=== PATIENT | male | born 1940 | race Caucasian/White ===

== ENCOUNTER 2018-03-13 19:51 | Inpatient (IN) | payer MEDICARE, MEDICAID ==
--- NOTE | 2018-03-13 20:26 | ED Physician Chart ---
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 ED Review of Systems - Review of Systems General/Constitutional: No fever, No chills, No weight loss, No weakness, No diaphoresis, No edema, No loss of appetite Skin: No skin lesions, No rash, No bruising Head: No headache, No light-headedness Eyes: No loss of vision, No pain, No diplopia ENT: No earache, No nasal drainage, No sore throat, No tinnitus Neck: No neck pain, No swelling, No thyromegaly, No stiffness, No mass noted Cardio Vascular: No chest pain, No palpitations, No PND, No orthopnea, No edema Pulmonary: No SOB, No cough, No sputum, No wheezing GI: No nausea, No vomiting, No diarrhea, No pain, No melena, No hematochezia, No constipation, No hematemesis G/U: No dysuria, No frequency, No hematuria Musculoskeletal: No bone or joint pain, No back pain, No muscle pain Endocrine: No polyuria, No polydipsia Psychiatric: Anxiety (agitation) Hematopoietic: No bruising, No lymphadenopathy Allergic/Immuno: No urticaria, No angioedema Neurological: No syncope, No focal symptoms, No weakness, No paresthesia, No headache, No seizure, No dizziness, No confusion, No vertigo ED Past Medical History - Past Medical History Past Medical History: Other (anxiety agitation) ED Physical Exam - Physical Examination General/Constitutional: Awake, Well-developed, well-nourished, Alert, No distress, GCS 15, Non-toxic appearing, Ambulatory Head: Atraumatic Eyes: Lids, conjuctiva normal, PERRL, EOMI Skin: Nl inspection, No rash, No skin lesions, No ecchymosis, Well hydrated, No lymphadenopathy ENMT: External ears, nose nl, Nasal exam nl, Lips, teeth, gums nl Neck: Nontender, Full ROM w/o pain, No JVD, No nuchal rigidity, No bruit, No mass, No stridor Respiratory: Nl effort/Exclusion, Clear to Auscultation, No Wheeze/Rhonchi/Rales Cardio Vascular: RRR, No murmur, gallop, rubs, NL S1 S2 GI: No tenderness/rebounding/guarding, No organomegaly, No hernia, Normal BS's, Nondistended, No mass/bruits, No McBurney tenderness : No CVA tenderness Extremities: No tenderness or effusion, Full ROM, normal strength in all extremities, No edema, Normal digits & nails Neuro/Psych: Alert/oriented, DTR's symmetric, Normal sensory exam, Normal motor strength, Judgement/insight normal, Mood normal, Normal gait, No focal deficits Misc: Normal back, No paraspinal tenderness ED Assessment - Assessment General Assessment: agitation ED Septic Shock - . Is Septic Shock (SBP<90, OR Lactate>4 mmol\L) present?: No ED Reassessment (Disposition) - Reassessment Reassessment:: agitation anxiety - Diagnosis Diagnosis:: as above - Patient Disposition Discharge/Transfer:: Acute Care w/in this hosp Admitted to:: Med/Surg Condition at Disposition:: Stable
[2018-03-13 20:57] LABS: % BASOPHILS 0.5 % (0.0-2.0); % EOSINOPHILS 4.5 % (0.0-5.0); % MONOCYTES 11.2 % (2.0-10.0); % NEUTROPHILS 52.8 % (40.0-80.0); EOSINOPHILE ABSOLUTE 0.2 Th/cmm (0.1-0.4); HEMATOCRIT 35.4 % (41.0-60); HEMOGLOBIN 12.1 gm/dL (12-16); LYMPHOCYTE ABSOLUTE 1.6 Th/cmm (1.5-3.0); MEAN CELL VOLUME 84.9 fl (80-99); MEAN CORPUSCULAR HGB CONC 34.1 pg (28.0-36.0); MONOCYTE ABSOLUTE 0.6 Th/cmm (0.3-1.0); NEUTROPHILE ABSOLUTE 2.8 Th/cmm (1.8-8.0); PLATELET COUNT 332 Th/cmm (150-400); RED BLOOD COUNT 4.17 Mil/cmm (3.80-5.80); RED CELL DISTRIBUTION WIDTH 12.2 % (11.5-20.0); WHITE BLOOD COUNT 5.2 Th/cmm (4.8-10.8)
[2018-03-13 21:45] LABS: ALB/GLOB RATIO 1.5 (1.0-1.8); ALKALINE PHOSPHATASE 45 U/L (34-104); ANION GAP 12.8 (7.0-16.0); BILIRUBIN,TOTAL 0.5 mg/dL (0.3-1.0); BUN - UREA NITROGEN 25 mg/dL (7-25); CALCIUM SERUM 9.2 mg/dL (8.6-10.3); CARBON DIOXIDE 27.4 mEq/L (21.0-31.0); CHLORIDE 103 mEq/L (98-107); GLUCOSE 101 mg/dL (70-105); POTASSIUM SERUM 4.2 mEq/L (3.5-5.1); SGOT 15 U/L (13-39); SGPT/ALT 11 U/L (7-52); SODIUM SERUM 139 mEq/L (136-145); TOTAL PROTEIN,SERUM 6.7 gm/dL (6.0-8.3)
[2018-03-13 23:42] VITALS: BP 115/70
[2018-03-13] MEDS ORDERED: Maalox 30 mL Cup PO PRN (23:56)
[2018-03-13] MEDS ORDERED: Magnesium Hydroxide (MOM) 30 mL UDC PO PRN (23:56)
[2018-03-14 00:08] LABS: CHOLESTEROL 140 mg/dL (<200); HDL -HIGH DENSITY LIPOPROTEIN 41 mg/dL (23-92); TRIGLYCERIDES 106 mg/dL (<150)
[2018-03-14] MEDS: Multivitamin w/ Minerals Tab PO SCH (08:33)
[2018-03-14] MEDS ORDERED: ASPARTAME PO SCH (09:00)
[2018-03-14] MEDS ORDERED: [UNRECOGNIZED DRUG - OTHER] PO SCH (09:00)
--- NOTE | 2018-03-15 00:07 | History & Physical ---
ADMIT DATE: 03/14/2018 REASON FOR ADMISSION: Psychiatric disorder. HISTORY OF PRESENT ILLNESS: This is a 77-year-old male with underlying history of Down syndrome, hypertension, diabetes who lives at nursing facility. He was admitted from [facility] for underlying psychiatry illness by Dr. Abdalla. Dr. Abdalla requested medical H and P on this patient. The patient denies any medical complaints or concerns. PAST MEDICAL HISTORY: No significant past medical history noted PAST SURGICAL HISTORY: No significant past surgical history. SOCIAL HISTORY: Lives at nursing facility. No reported alcohol, tobacco, or drug use. CURRENT MEDICATIONS: Per medication reconcilation. ALLERGIES: None. REVIEW OF SYSTEMS: All 12-point system is negative. PHYSICAL EXAMINATION: VITAL SIGNS: Temperature 98.4, pulse 70, respirations 18, blood pressure 85/68, HEENT: Unremarkable. HEART: S1, S2 normal. LUNGS: Clear to auscultation bilaterally. ABDOMEN: Soft, nontender. No guarding, no rigidity. NEUROLOGIC: Awake, follows commands. Grossly nonfocal exam. ASSESSMENT: 1. Fever. 2. Down syndrome. 3. Hypotension. 4. Mental disorder. PLAN: We will obtain blood cultures, preliminary is negative. WBC is normal. We will obtain urinalysis and culture. We will hold blood pressures medications as blood pressure is low. Psych management per psychiatrist. The patient is medically stable to participate in activities in [facility] unit. Thank you, Dr. Abdalla, for allowing me to participate in the care of this patient. Plan discussed with nursing staff. JOB# [id number] [facility]
[2018-03-15] MEDS: Multivitamin w/ Minerals Tab PO SCH (08:39)
--- NOTE | 2018-03-15 15:28 | Psychiatric Evaluation ---
DATE OF SERVICE: 03/14/2018 HISTORY OF PRESENT ILLNESS: A 77-year-old male with history of agitation, psychosis, aggressive behaviors, that is why he is currently in the hospital. The patient is apparently also a conserve, very poor historian, AO to name only, does not know where he is or what is going on. Unable to tell me the date. I have a hard time actually understanding him. PAST PSYCHIATRIC HISTORY: Unclear, but he is apparently conserved. Per documentation, he has got a history of Down syndrome as well, anxiety, agitation, unspecified psychosis. SOCIAL HISTORY: Apparently, he is conserved. He is coming from a nursing home facility. Beyond this, he is not a good historian. I am not really able to converse with him and clean information. MEDICATIONS: Noted. MENTAL STATUS EXAMINATION: Stated age, fair eye contact. Speech rambling, very difficult to understand. Loud volume. Mood "okay." Affect flat. Thought processes were seemingly disoriented. No overt SI or HI. No suicidal gestures. Unclear psychotic symptoms. Insight and judgment are highly questionable. Impulse control highly questionable. PROVISIONAL DIAGNOSES: Psychosis, unspecified; anxiety, unspecified; mood, unspecified. It is unclear if he has a component of developmental disability given his Down syndrome diagnosis. MEDICAL: Please see full H and P. ESTIMATED LENGTH OF STAY: 5-6 days. ASSESSMENT: The patient is agitated, has been combative, not safe for a lower level of care. PLAN: We will continue to monitor. Medications reviewed. We will adjust and titrate medications. TREATMENT PLAN: Includes group as well as milieu therapy. CONDITIONS FOR DISCHARGE: Improved mood, improved affect, control of any psychotic or aggressive symptoms. JOB# [id number]
--- NOTE | 2018-03-16 02:21 | Progress Notes ---
DATE: 03/15/2018 The patient poorly oriented, knows his name, essentially independent with ADLs, redirectable. He remains somewhat impulsive, unpredictable, but calm, poor historian, not able to really give me much information and apparently has been somewhat aggressive, agitated and that is why he came to the hospital, difficult to understand, incoherent speech, remains impulsive, unpredictable, concerns for acting out behaviors. MEDICATIONS: Reviewed. ASSESSMENT: The patient seems to be calmer, more cooperative, less agitated, but impulsive. PLAN: We will continue to monitor, titrate and adjust medications. JOB# [id number]
[2018-03-16] MEDS: Multivitamin w/ Minerals Tab PO SCH (08:50)
--- NOTE | 2018-03-17 01:27 | Progress Notes ---
DATE: 03/16/2018 SUBJECTIVE: The patient is coming in from [facility]. Noted to be unruly, agitated, they could not control his behaviors. The patient has been calmer, more cooperative, still a poor historian, AO to name only, does not know where he is or what is going on, mumbling, but seems to be following unit rules and directions. He is at times preoccupied, anxious, sometimes noted by staff to be labile, easily irritable, suspicious, able to follow simple commands, compliant with medications. ASSESSMENT: The patient remains symptomatic, impulsive, unpredictable, but tolerant to treatment, happy with current dosing of medication including Zyprexa dosing. I will be increasing his dosing of Zyprexa to 7.5 mg at nighttime to see if this will better control his impulsivities. JOB# [id number]
[2018-03-17] MEDS: Multivitamin w/ Minerals Tab PO SCH (08:42)
--- NOTE | 2018-03-18 01:30 | Progress Notes ---
DATE: 03/17/2018 Case was discussed with staff of the patient, reviewed records. This is a 77-year-old male who was admitted on 03/13/2018, because of agitation and aggressive behavior he was on a hold. He was a poor historian, oriented to name only. Keep talking to himself, unable to participate in a meaningful conversation. He is conserved with a history of Down syndrome as well. Continues to be agitated, confused, unable to formulate a safe plan for self-care or participate in meaningful conversation. He is compliant with the medication with no side effects, no sedation, no nausea, and no extrapyramidal symptoms. He is on olanzapine 7.5 mg at bedtime and we will continue to work with the patient in group therapy, milieu therapy, and adjust the medication as needed. JOB# [id number]
[2018-03-18] MEDS: Multivitamin w/ Minerals Tab PO SCH (08:33)
[2018-03-19] MEDS: Multivitamin w/ Minerals Tab PO SCH (09:19)
--- NOTE | 2018-03-19 19:10 | Progress Notes ---
DATE: SUBJECTIVE: Chart reviewed and the patient interviewed. Also discussed the patient's condition with the staff and reviewed records and labs. The patient is still hyperverbal and he is still laughing inappropriately and severely anxious and irritable. During my interview, the patient kept rambling with loud tone of voice with words difficult to understand. He was still suspicious and was paranoid. Otherwise, the patient was cooperative and taking his medications. ASSESSMENT: The patient is still psychotic. TREATMENT PLAN: Continue monitoring his behavior and his condition closely. Also, we will increase Zyprexa to 10 mg at bedtime and we will continue to follow up. [facility]# [id number]
--- NOTE | 2018-03-19 21:42 | Progress Notes ---
DATE: 03/19/2018 SUBJECTIVE: Chart reviewed and the patient interviewed. Also discussed the patient's condition with the staff and reviewed records and labs. The patient seems to be slightly calmer today, although he still has episodes of hyperverbal and he is still hallucinating and talking to himself. The patient also is still laughing inappropriately and is still easily agitated and needed lots of redirections. He seems to be slightly calmer than before, but he is still actively hallucinating. ASSESSMENT: The patient is still psychotic. TREATMENT PLAN: Zyprexa was increased yesterday to 10 mg every day. Continue same dose and continue adjusting psychotropic medications and work on behavioral modification. JOB# [id number]
[2018-03-20] MEDS: Multivitamin w/ Minerals Tab PO SCH ×2 (09:05→09:25)
[2018-03-21] MEDS: Multivitamin w/ Minerals Tab PO SCH (09:09)
--- NOTE | 2018-03-21 15:29 | Progress Notes ---
DATE: 03/20/2018 SUBJECTIVE: A 77-year-old male with history of agitation, psychosis, aggressive behaviors, very poor historian, AO to name only, rambling, mumbling, yelling, screaming, I cannot really understand what he is saying, forgetful, confused, mostly in bed, withdrawn, isolative, talking to self, impulsive, and preoccupied. ASSESSMENT: The patient is disorganized, poor historian, empowers thought processes. PLAN: We will continue to monitor. We will titrate and adjust dosages of medications. Continue Zyprexa dosing. [facility]# [id number]
--- NOTE | 2018-03-21 22:42 | Discharge Summary ---
DATE OF DISCHARGE: 03/21/2018 HISTORY OF PRESENT ILLNESS: A 77-year-old male, agitated, psychotic, aggressive, very confused, AO to name only, poor historian, unable to have a reasonable conversation with him. PAST PSYCHIATRIC HISTORY: Apparently conserved, history of Down syndrome, unspecified psychosis. SOCIAL HISTORY: [facility]. Medications were noted. PROVISIONAL DIAGNOSIS: Psychosis, unspecified; anxiety, unspecified; history of developmental disability; rule out schizophrenia. Under medical includes Down syndrome. HOSPITAL COURSE: After initial assessment, the patient was admitted to the hospital. Medications were adjusted and titrated. Restarted on Zyprexa. Over the course of the hospitalization, his mood improved, affect improved. Noted to be calmer, more cooperative, no longer as agitated. Better impulse control. Still confused and disoriented. No SI. No HI. CONDITION ON DISCHARGE: Improved, allowing ADLs. Mood "okay." AO to name only, disoriented. No SI, no HI. No psychosis. Better insight, better judgment. PROVISIONAL DIAGNOSES: Psychosis, unspecified; rule out schizophrenia; mood, unspecified; anxiety, unspecified. Under medical, please see full H and P. PROGNOSIS: The patient follows up with outpatient mental health services and remains compliant with treatment. Prognosis will improve, otherwise guarded. JOB# [id number]
== END 2018-03-21 16:50 | DRG 885 ==
LOC: ER 19:51 → GERO2 21:33
PROVIDERS: ADMIT Psychiatry & Neurology Psychiatry; ATTEND Psychiatry & Neurology Psychiatry
DX: F29 Unspecified psychosis not due to a substance or known physiological condition (principal); F20.9 Schizophrenia, unspecified; F41.9 Anxiety disorder, unspecified; R50.9 Fever, unspecified; I95.9 Hypotension, unspecified; Q90.9 Down syndrome, unspecified
CPT/HCPCS: 36415-UA; 80053-TC; 80061-TC; 83036-90; 84443-TC; 85025-TC; 86592-TC; 93005; G0410; J7051; Z7610